=== PATIENT | female | born 1990 | race Caucasian/White ===

== ENCOUNTER 2016-03-21 15:00 | Emergency (ER) | payer OTHER ==
[~2016-03-21 15:00] MED LIST: DOCU10CA PO; MOTR200T44 PO; PERC5TAB6 PO; PRENTAB52 PO; ZOFR20TA PO
--- NOTE | 2016-03-21 17:36 | REP ---
Obstetric sonography: History: Abdominal pain vaginal spotting. 13 weeks 5 days by LMP. Findings: Transabdominal scanning demonstrates a single living intrauterine gestation. heart rate is recorded at 165 beats per minute. motion is observed. No subchorionic hemorrhage is seen. There is a posterior placenta without evidence of previa. There is a right maternal adnexal cyst, 2.2 cm in diameter consistent with corpus luteum. No gross anomaly is seen. Biometry chart: [place]-rump length 8.8 cm= 14 weeks 5 days BPD 2.8 cm = 15 weeks 0 days Head circumference 10.4 cm = 14 weeks 6 days Abdominal circumference 7.9 cm = 14 weeks 2 days Femur length 1.2 cm = 13 weeks 4 days Humeral length 1.5 cm = 14 weeks 1 day HC/AC ratio 1.32, cephalic index 0.75 estimated weight 88 grams, 0 pounds 3 ounces, 53rd percentile for 13 weeks 5 days. Impression: Viable single intrauterine gestation at 14 weeks 3 days by today's composite sonographic criteria. GUERO by today's sonography 09/16/2016. No complication is identified. Signed by Gabriele Mendoza MD 03/21/2016 05:44 P
[2016-03-21 18:02] LABS: MEAN CORPUSCULAR HEMOGLOBIN 27.7 pg (27.0-33.0); MEAN CORPUSCULAR HGB CONC 32.7 g/dl (32.0-36.5); MEAN CORPUSCULAR VOLUME 84.7 fl (80.0-96.0); RED CELL DISTRIBUTION WIDTH 14.1 % (11.5-14.5); WHITE BLOOD COUNT 15.2 K/mm3 (4.0-10.0)
--- NOTE | 2016-03-21 20:08 | EDDOCDS ---
Nurse's Notes [facility] Name: Obdulia Tam Age: 25 yrs Sex: Female : 1990 Arrival Date: 03/21/2016 Time: 15:00 Bed TR8 Private MD: KAT Lyons Diagnosis: related conditions, unspecified, first trimester;Pelvic and perineal pain;Acute vaginitis Presentation: 03/21 15:10 Presenting complaint: Patient states: "I woke up with cramping this morning and small ead amount of pink bleeding." Pt states she is 13 weeks . Risk factors: the patient reports a small or scant amount of vaginal bleeding. Adult Sepsis Screening: The patient does not have new or worsening altered mentation. Patient's respiratory rate is less than 22. Systolic blood pressure is greater than 100. Patient has a qSOFA score of 0- Negative Sepsis Screen. Suicide/Homicide risk assessment- the patient denies having any suicidal and/or homicidal ideations and does not present with any other emotional, behavioral or mental health complaints. Status: The patient is a dependent. Transition of care: patient was not received from another setting of care. 15:10 Acuity: BI Level 3 ead 15:10 Method Of Arrival: Walkin/Carried/Asstd ead Triage Assessment: 15:12 General: Appears in no apparent distress, well nourished, well groomed, Behavior is ead appropriate for age, cooperative, pleasant. Pain: Location: abdomen Pain currently is 5 out of 10 on a pain scale. HIV screening NA for this visit Offered previously. Neurological: No deficits noted. GI: Reports lower abdominal pain, Denies nausea, vomiting. GI: Reports cramping. : Reports vaginal bleeding that is spotty and pink. Derm: Skin is pink, warm & dry. 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 Vitamin Oral once daily - PMHx: Hypertension; Depression; - PSHx: ; - Social history: Smoking status: Patient states former smoker of tobacco. No barriers to communication noted, The patient speaks fluent Yemeni, Speaks appropriately for age. - Family history: Not pertinent. - : The pt / caregiver states he / she is not on anticoagulants. Home medication list is obtained from the patient. - Exposure Risk Screening:: None identified. Screenin:04 Screening information is obtained from the patient. Fall risk: No risks identified. ms18 Assistance ADL's: requires no assistance with activities of daily living. Abuse/DV Screen: The patient / caregiver reports he/she is: not in a situation that causes fear, pain or injury. Nutritional screening: No deficits noted. Advance Directives: There is no living will. home support is adequate. Assessment: 20:04 General: Appears in no apparent distress, comfortable, Behavior is appropriate for age, ms18 cooperative, pleasant. Pain: Denies pain. Neurological: Level of Consciousness is awake, alert, obeys commands, Oriented to person, place, time, Gait is steady, Speech is normal. Respiratory: No deficits noted. GI: Abdomen is non- distended Bowel sounds present X 4 quads. Abd is soft X 4 quads. Derm: Skin is pink, warm & dry. Vital Signs: 15:01 BP 146 / 81; Pulse 102; Resp 18 S; Temp 97.8(O); Pulse Ox 100% on R/A; Weight 124.74 kg gr2 (R); Height 5 ft. 7 in. (170.18 cm) (R); Pain 4/10; 17:28 BP 128 / 75; Pulse 89; Resp 18; Temp 98.5(TE); Pulse Ox 99% on R/A; Pain 4/10; ar3 20:02 BP 136 / 84; Pulse 84; Resp 18; Temp 98.2(TE); Pulse Ox 96% on R/A; Pain 4/10; ar3 15:01 Body Mass Index 43.07 (124.74 kg, 170.18 cm) gr2 Vitals: 15:01 Log In Time: March 21, 2016 at 15:01. gr2 ED Course: 15:01 Patient visited by Julianna King. gr2 15:01 Serena [facility] is Private Physician. gr2 15:01 Patient moved to Waiting gr2 15:03 Patient visited by Julianna King. gr2 15:03 Patient moved to Pre RCE gr2 15:12 Triage Initiated ead 16:28 Patient moved to Ultrasound am17 16:43 Patient moved to Pre RCE am17 17:29 Patient visited by Lisy Gao PCA. ar3 17:39 Complete Blood Count Sent. ar3 17:39 Hcg, Serum Quantitative Sent. ar3 17:39 Type & Screen Sent. ar3 17:39 Urinalysis Sent. ar3 17:39 Urine Culture Sent. ar3 18:11 US OBS GEORGE EDWARDS Returned. EDMS 18:42 Patient moved to Triage 3 bnb 18:58 Lopez Xiong PA is PHCP. mo1 18:58 Kaylyn Knight MD is Attending Physician. mo1 19:15 Patient visited by Lopez Xiong PA. mo1 19:35 Assist provider with pelvic exam:. ms18 19:40 Patient visited by Coretta Nova RN. ms18 19:40 Patient moved to TR2 ms18 19:40 Wet Prep Sent. ms18 19:40 GC & Chlamydia Amplification Sent. ms18 19:46 [facility] Payment Agreement was scanned into [employer] and attached to record. gjb 19:59 KAT Lyons is Referral Physician. mo1 19:59 Kt Da Silva MD is Referral Physician. mo1 19:59 Patient moved to PR2 / 26 ms18 20:03 Patient visited by Lisy Gao PCA. ar3 20:04 Patient moved to TR8 ms18 20:04 The patient / caregiver is instructed regarding the plan of care and ED course. Patient ms18 has correct armband on for positive identification. Property sent home with patient. :Personal belongings accompany Pt. 20:04 No IV's were initiated during this patient's visit. ms18 Order Results: Lab Order: Complete Blood Count; SPEC'M 03/21/16 17:33 Test: WHITE BLOOD COUNT; Value: 15.2; Range: 4.0-10.0; Abnormal: Above high normal; Units: K/mm3; Status: F Test: RED BLOOD COUNT; Value: 4.88; Range: 4.00-5.40; Units: M/mm3; Status: F Test: HEMOGLOBIN; Value: 13.5; Range: 12.0-16.0; Units: g/dl; Status: F Test: HEMATOCRIT; Value: 41.4; Range: 36.0-47.0; Units: %; Status: F Test: MEAN CORPUSCULAR VOLUME; Value: 84.7; Range: 80.0-96.0; Units: fl; Status: F Test: MEAN CORPUSCULAR HEMOGLOBIN; Value: 27.7; Range: 27.0-33.0; Units: pg; Status: F Test: MEAN CORPUSCULAR HGB CONC; Value: 32.7; Range: 32.0-36.5; Units: g/dl; Status: F Test: RED CELL DISTRIBUTION WIDTH; Value: 14.1; Range: 11.5-14.5; Units: %; Status: F Test: PLATELET COUNT, AUTOMATED; Value: 263; Range: 150-450; Units: k/mm3; Status: F Lab Order: Hcg, Serum Quantitative; SPEC'M 03/21/16 Test: HCG, SERUM QUANTITATIVE; Value: 61452; Units: MIU/ML; Status: F Test Note: ; GESTATIONAL AGE APPROXIMATE HCG RANGE (MIU/ML) 0.2-1 WEEK 5-50 1-2 WEEKS 50-500 2-3 WEEKS 100-5,000 3-4 WEEKS 500-10,000 4-5 WEEKS 1,000-50,000 5-6 WEEKS 10,000-100,000 6-8 WEEKS 15,000-200,000 2-3 MONTHS 10,000-100,000 NON FEMALES LESS THAN 3.0 Patient samples may contain human heterophilic antibodies that could react with immunoassays to give falsely elevated or depressed results. This assay has been designed to minimize interference from heterophilic antibodies. Elevated hCG levels have also been associated with trophoblastic disease and nontrophoblastic neoplasms. The possibility of having these diseases should be considered before a diagnosis of is made. This test is not intended for use as a surrogate marker for aiding in the diagnosis or monitoring the treatment of cancer patients. [employer] protected-[email or web address] methodology. Lab Order: Type & Screen; SPEC'03/21/16 Test: BLOOD TYPE; Value: A POS; Status: F Test: AB SCREEN (INDIRECT JYOTI)GEL; Value: NEGATIVE; Status: F Lab Order: Urinalysis; SPEC'M 03/21/16 Test: APPEARANCE, URINE; Value: HAZY; Range: CLEAR; Status: F Test: COLOR, URINE; Value: YELLOW; Range: YELLOW; Status: F Test: PH,URINE; Value: 5.0; Range: 5.0-9.0; Units: UNITS; Status: F Test: SPECIFIC GRAVITY URINE AUTO; Value: 1.027; Range: 1.002-1.035; Status: F Test: PROTEIN, URINE AUTO; Value: NEGATIVE; Range: NEGATIVE; Units: mg/dL; Status: F Test: GLUCOSE, URINE (UA) AUTO; Value: NEGATIVE; Range: NEGATIVE; Units: mg/dL; Status: F Test: KETONE, URINE AUTO; Value: 1+; Range: NEGATIVE; Abnormal: Above high normal; Units: mg/dL; Status: F Test: UROBILINOGEN, URINE AUTO; Value: 0.2; Range: 0.0-2.0; Units: mg/dL; Status: F Test: BILIRUBIN, URINE AUTO; Value: NEGATIVE; Range: NEGATIVE; Status: F Test: NITRITE, URINE AUTO; Value: NEGATIVE; Range: NEGATIVE; Status: F Test: LEUKOCYTE ESTERASE, URINE AUTO; Value: NEGATIVE; Range: NEGATIVE; Status: F Test: BLOOD, URINE BLOOD; Value: 1+; Range: NEGATIVE; Abnormal: Above high normal; Status: F Test: WBC, URINE AUTO; Value: 2; Range: 0-3; Units: /HPF; Status: F Test: RBC, URINE AUTO; Value: 4; Range: 0-3; Abnormal: Above high normal; Units: /HPF; Status: F Test: BACTERIA, URINE AUTO; Value: NEGATIVE; Range: NEGATIVE; Status: F Test: SQUAMOUS EPITHELIAL CELL UR AU; Value: 2; Range: 0-6; Units: /HPF; Status: F Test: TRANSITIONAL EPITHELIAL AUTO; Value: <1; Range: NONE; Units: /HPF; Status: F Test: MUCUS, URINE; Value: SMALL; Range: NEGATIVE; Status: F Test: HYALINE CAST, URINE AUTO; Value: 0; Range: 0-1; Units: /LPF; Status: F Lab Order: Wet Prep; SPEC'M 03/21/16 19:36 Test: WET PREP; Value: WET PREP RESULT; Status: F Test: WET PREP; Value: MANY EPITHELIAL CELLS PRESENT; Status: F Test: WET PREP; Value: MANY WBC; Status: F Test: WET PREP; Value: MANY SHORT RODS PRESENT; Status: F Test: WET PREP; Value: MODERATE LONG RODS PRESENT; Status: F Radiology Order: US OBS SINGEL GEST Test: US OBS SINGEL GEST REASON FOR EXAMINATION: Bleeding; Obstetric sonography:; ; History: Abdominal pain vaginal spotting. 13 weeks 5 days by LMP.; ; Findings: Transabdominal scanning demonstrates a single living intrauterine; gestation. heart rate is recorded at 165 beats per minute. motion; is observed. No subchorionic hemorrhage is seen. There is a posterior placenta; without evidence of previa. There is a right maternal adnexal cyst, 2.2 cm in; diameter consistent with corpus luteum. No gross anomaly is seen.; ; Biometry chart:; ; [place]-rump length 8.8 cm= 14 weeks 5 days; ; BPD 2.8 cm = 15 weeks 0 days; ; Head circumference 10.4 cm = 14 weeks 6 days; ; Abdominal circumference 7.9 cm = 14 weeks 2 days; ; Femur length 1.2 cm = 13 weeks 4 days; ; Humeral length 1.5 cm = 14 weeks 1 day; ; HC/AC ratio 1.32,; ; cephalic index 0.75; ; estimated weight 88 grams, 0 pounds 3 ounces, 53rd percentile for 13 weeks; 5 days.; ; Impression:; ; Viable single intrauterine gestation at 14 weeks 3 days by today's composite; sonographic criteria. GUERO by today's sonography 09/16/2016. No complication is; identified.; ; ; Signed by; Gabriele Mendoza MD 03/21/2016 05:44 P; Outcome: 19:59 Discharge ordered by Provider. mo1 20:04 Discharge Assessment: Patient awake, alert and oriented x 3. No cognitive and/or ms18 functional deficits noted. Patient verbalized understanding of disposition instructions. patient administered narcotics - no. The following High Risk Discharge criteria are identified: None. Discharged to home ambulatory. Condition: good Condition: stable Condition: improved. Discharge instructions given to patient, Instructed on discharge instructions, follow up and referral plans. Demonstrated understanding of instructions, medications, Pt was receptive of discharge instructions/ teaching. No special radiology studies were completed. 20:07 Patient left the ED. ms18 Signatures: Dispatcher [employer] EDMS Lisy Gao, CREDIT VERIFIER CREDIT VERIFIER ar3 Julianna King gr2 Lopez Xiong PA PA mo1 Joselyn Canchola,RN RN ead Lucrecia Fuller am17 Coretta Nova RN RN ms18 Daxa Arredondo Brittney, CREDIT VERIFIER CREDIT VERIFIER bnb MTDD
--- NOTE | 2016-03-21 20:08 | EDDOCDS ---
Physician Documentation [facility] Name: Obdulia Tam Age: 25 yrs Sex: Female : 1990 Arrival Date: 03/21/2016 Time: 15:00 Bed TR8 Private MD: KAT Lyons Disposition: 03/21/16 19:59 Discharged to Home/Self Care. Impression: related conditions, unspecified, first trimester, Pelvic and perineal pain, Acute vaginitis. - Condition is Stable. - Discharge Instructions: First Trimester of , Pelvic Pain, Female. - Medication Reconciliation, Local Pharmacy Hours form. - Follow up: KAT Lyons; When: Call to arrange an appointment; Reason: Recheck today's complaints, Continuance of care. Follow up: Kt Da Silva MD; When: Call to arrange an appointment; Reason: Recheck today's complaints, Continuance of care. - Problem is new. - Symptoms are unchanged. Historical: - Allergies: no known allergies; - Home Meds: 1. Vitamin Oral once daily - PMHx: Hypertension; Depression; - PSHx: ; - Social history: Smoking status: Patient states former smoker of tobacco. No barriers to communication noted, The patient speaks fluent Serbian, Speaks appropriately for age. - Family history: Not pertinent. - : The pt / caregiver states he / she is not on anticoagulants. Home medication list is obtained from the patient. - Exposure Risk Screening:: None identified. 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 7 in. (170.18 cm) (R); Pain 4/10; 17:28 BP 128 / 75; Pulse 89; Resp 18; Temp 98.5(TE); Pulse Ox 99% on R/A; Pain 4/10; ar3 20:02 BP 136 / 84; Pulse 84; Resp 18; Temp 98.2(TE); Pulse Ox 96% on R/A; Pain 4/10; ar3 15:01 Body Mass Index 43.07 (124.74 kg, 170.18 cm) gr2 MDM: 15:57 Undress patient appropriately for examination ordered. jc4 15:58 Complete Blood Count Ordered. EDMS 15:58 Hcg, Serum Quantitative Ordered. EDMS 15:58 Urinalysis Ordered. EDMS 15:59 Urine Culture Ordered. EDMS 16:00 Type & Screen Ordered. EDMS 16:40 US OBS SINGEL GEST Ordered. EDMS 19:15 Complete Blood Count Reviewed. mo1 19:16 Urinalysis Reviewed. mo1 19:16 Hcg, Serum Quantitative Reviewed. mo1 19:16 Type & Screen Reviewed. mo1 19:17 US OBS SINGEL GEST Reviewed. mo1 19:27 Set up pelvic ordered. mo1 19:28 GC & Chlamydia Amplification Ordered. EDMS 19:28 Wet Prep Ordered. EDMS 19:46 [facility] Payment Agreement was scanned into [employer] and attached to record. gjb 19:46 Financial registration complete. gjb 19:58 Wet Prep Reviewed. mo1 Signatures: Dispatcher [employer] Sue Soto RN RN jc4 Lopez Xiong, ELEONORA PA mo1 Joselyn CancholaRN Coretta Gupta RN RN ms18 Daxa Arredondo gjb The chart was reviewed and I authenticate all verbal orders and agree with the evaluation and treatment provided.Corrections: (The following items were deleted from the chart) 16:40 15:59 1ST TRIMESTER US+US ordered. EDMA EDMS Attachments: 19:46 [facility] Payment Agreement gjb MTDD
--- NOTE | 2016-03-23 21:07 | EDDOCDS ---
Physician Documentation [facility] [place] Name: Obdulia Tam Age: 25 yrs Sex: Female : 1990 Arrival Date: 03/21/2016 Time: 15:00 Bed TR8 Private MD: KAT Lyons Disposition: 03/21/16 19:59 Discharged to Home/Self Care. Impression: related conditions, unspecified, first trimester, Pelvic and perineal pain, Acute vaginitis. - Condition is Stable. - Discharge Instructions: First Trimester of , Pelvic Pain, Female. - Medication Reconciliation, Local Pharmacy Hours form. - Follow up: KAT Lyons; When: Call to arrange an appointment; Reason: Recheck today's complaints, Continuance of care. Follow up: Kt Da Silva MD; When: Call to arrange an appointment; Reason: Recheck today's complaints, Continuance of care. - Problem is new. - Symptoms are unchanged. Historical: - Allergies: no known allergies; - Home Meds: 1. Vitamin Oral once daily - PMHx: Hypertension; Depression; - PSHx: ; - Social history: Smoking status: Patient states former smoker of tobacco. No barriers to communication noted, The patient speaks fluent Setswana, Speaks appropriately for age. - Family history: Not pertinent. - : The pt / caregiver states he / she is not on anticoagulants. Home medication list is obtained from the patient. - Exposure Risk Screening:: None identified. 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 7 in. (170.18 cm) (R); Pain 4/10; 17:28 BP 128 / 75; Pulse 89; Resp 18; Temp 98.5(TE); Pulse Ox 99% on R/A; Pain 4/10; ar3 20:02 BP 136 / 84; Pulse 84; Resp 18; Temp 98.2(TE); Pulse Ox 96% on R/A; Pain 4/10; ar3 15:01 Body Mass Index 43.07 (124.74 kg, 170.18 cm) gr2 MDM: 15:57 Undress patient appropriately for examination ordered. jc4 15:58 Complete Blood Count Ordered. EDMS 15:58 Hcg, Serum Quantitative Ordered. EDMS 15:58 Urinalysis Ordered. EDMS 15:59 Urine Culture Ordered. EDMS 16:00 Type & Screen Ordered. EDMS 16:40 US OBS SINGEL GEST Ordered. EDMS 19:15 Complete Blood Count Reviewed. mo1 19:16 Urinalysis Reviewed. mo1 19:16 Hcg, Serum Quantitative Reviewed. mo1 19:16 Type & Screen Reviewed. mo1 19:17 US OBS SINGEL GEST Reviewed. mo1 19:27 Set up pelvic ordered. mo1 19:28 GC & Chlamydia Amplification Ordered. EDMS 19:28 Wet Prep Ordered. EDMS 19:46 [facility] Payment Agreement was scanned into [employer] and attached to record. gjb 19:46 Financial registration complete. gjb 19:58 Wet Prep Reviewed. mo1 03/22 11:02 T-Sheet-- Draft Copy was scanned into [employer] and attached to record. gb Signatures: Dispatcher [employer] EDDE Thais Mcintyre, Reg Reg gb Sue Vines, RN RN jc4 Lopez Xiong, ELEONORA PA mo1 Joselyn Canchola,RN RN Coretta Gimenez,RN RN ms18 Daxa Arredondo The chart was reviewed and I authenticate all verbal orders and agree with the evaluation and treatment provided.Corrections: (The following items were deleted from the chart) 03/21 16:40 15:59 1ST TRIMESTER US+US ordered. EDDE EDMS Attachments: 19:46 [facility] Payment Agreement gj 03/22 11:02 T-Sheet-- Draft Copy gb Chart Complete MTDD
--- NOTE | 2016-03-23 21:07 | EDDOCDS ---
Physician Documentation [facility] Name: Obdulia Tam Age: 25 yrs Sex: Female : 1990 Arrival Date: 03/21/2016 Time: 15:00 Bed TR8 Private MD: KAT Lyons Disposition: 03/21/16 19:59 Discharged to Home/Self Care. Impression: related conditions, unspecified, first trimester, Pelvic and perineal pain, Acute vaginitis. - Condition is Stable. - Discharge Instructions: First Trimester of , Pelvic Pain, Female. - Medication Reconciliation, Local Pharmacy Hours form. - Follow up: KAT Lyons; When: Call to arrange an appointment; Reason: Recheck today's complaints, Continuance of care. Follow up: Kt Da Silva MD; When: Call to arrange an appointment; Reason: Recheck today's complaints, Continuance of care. - Problem is new. - Symptoms are unchanged. Historical: - Allergies: no known allergies; - Home Meds: 1. Vitamin Oral once daily - PMHx: Hypertension; Depression; - PSHx: ; - Social history: Smoking status: Patient states former smoker of tobacco. No barriers to communication noted, The patient speaks fluent Bengali, Speaks appropriately for age. - Family history: Not pertinent. - : The pt / caregiver states he / she is not on anticoagulants. Home medication list is obtained from the patient. - Exposure Risk Screening:: None identified. 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 7 in. (170.18 cm) (R); Pain 4/10; 17:28 BP 128 / 75; Pulse 89; Resp 18; Temp 98.5(TE); Pulse Ox 99% on R/A; Pain 4/10; ar3 20:02 BP 136 / 84; Pulse 84; Resp 18; Temp 98.2(TE); Pulse Ox 96% on R/A; Pain 4/10; ar3 15:01 Body Mass Index 43.07 (124.74 kg, 170.18 cm) gr2 MDM: 15:57 Undress patient appropriately for examination ordered. jc4 15:58 Complete Blood Count Ordered. EDMS 15:58 Hcg, Serum Quantitative Ordered. EDMS 15:58 Urinalysis Ordered. EDMS 15:59 Urine Culture Ordered. EDMS 16:00 Type & Screen Ordered. EDMS 16:40 US OBS SINGEL GEST Ordered. EDMS 19:15 Complete Blood Count Reviewed. mo1 19:16 Urinalysis Reviewed. mo1 19:16 Hcg, Serum Quantitative Reviewed. mo1 19:16 Type & Screen Reviewed. mo1 19:17 US OBS SINGEL GEST Reviewed. mo1 19:27 Set up pelvic ordered. mo1 19:28 GC & Chlamydia Amplification Ordered. EDMS 19:28 Wet Prep Ordered. EDMS 19:46 [facility] [place] Payment Agreement was scanned into [employer] and attached to record. gjb 19:46 Financial registration complete. gjb 19:58 Wet Prep Reviewed. mo1 03/22 11:02 T-Sheet-- Draft Copy was scanned into [employer] and attached to record. gb Signatures: Dispatcher [employer] EDRI Thais Mcintyre, Reg Reg gb Sue Vines, RN RN jc4 Lopez Xiong, ELEONORA PA mo1 Joselyn Canchola,RN RN Coretta Gimenez,RN RN ms18 Daxa Arredondo The chart was reviewed and I authenticate all verbal orders and agree with the evaluation and treatment provided.Corrections: (The following items were deleted from the chart) 03/21 16:40 15:59 1ST TRIMESTER US+US ordered. EDRI EDMS Attachments: 19:46 [facility] Payment Agreement gj 03/22 11:02 T-Sheet-- Draft Copy gb Chart Complete MTDD
--- NOTE | 2016-03-23 21:07 | EDDOCDS ---
Nurse's Notes [facility] Name: Obdulia Tam Age: 25 yrs Sex: Female : 1990 Arrival Date: 03/21/2016 Time: 15:00 Bed TR8 Private MD: KAT Lyons Diagnosis: related conditions, unspecified, first trimester;Pelvic and perineal pain;Acute vaginitis Presentation: 03/21 15:10 Presenting complaint: Patient states: "I woke up with cramping this morning and small ead amount of pink bleeding." Pt states she is 13 weeks . Risk factors: the patient reports a small or scant amount of vaginal bleeding. Adult Sepsis Screening: The patient does not have new or worsening altered mentation. Patient's respiratory rate is less than 22. Systolic blood pressure is greater than 100. Patient has a qSOFA score of 0- Negative Sepsis Screen. Suicide/Homicide risk assessment- the patient denies having any suicidal and/or homicidal ideations and does not present with any other emotional, behavioral or mental health complaints. Status: The patient is a dependent. Transition of care: patient was not received from another setting of care. 15:10 Acuity: BI Level 3 ead 15:10 Method Of Arrival: Walkin/Carried/Asstd ead Triage Assessment: 15:12 General: Appears in no apparent distress, well nourished, well groomed, Behavior is ead appropriate for age, cooperative, pleasant. Pain: Location: abdomen Pain currently is 5 out of 10 on a pain scale. HIV screening NA for this visit Offered previously. Neurological: No deficits noted. GI: Reports lower abdominal pain, Denies nausea, vomiting. GI: Reports cramping. : Reports vaginal bleeding that is spotty and pink. Derm: Skin is pink, warm & dry. 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 Vitamin Oral once daily - PMHx: Hypertension; Depression; - PSHx: ; - Social history: Smoking status: Patient states former smoker of tobacco. No barriers to communication noted, The patient speaks fluent Welsh, Speaks appropriately for age. - Family history: Not pertinent. - : The pt / caregiver states he / she is not on anticoagulants. Home medication list is obtained from the patient. - Exposure Risk Screening:: None identified. Screenin:04 Screening information is obtained from the patient. Fall risk: No risks identified. ms18 Assistance ADL's: requires no assistance with activities of daily living. Abuse/DV Screen: The patient / caregiver reports he/she is: not in a situation that causes fear, pain or injury. Nutritional screening: No deficits noted. Advance Directives: There is no living will. home support is adequate. Assessment: 20:04 General: Appears in no apparent distress, comfortable, Behavior is appropriate for age, ms18 cooperative, pleasant. Pain: Denies pain. Neurological: Level of Consciousness is awake, alert, obeys commands, Oriented to person, place, time, Gait is steady, Speech is normal. Respiratory: No deficits noted. GI: Abdomen is non- distended Bowel sounds present X 4 quads. Abd is soft X 4 quads. Derm: Skin is pink, warm & dry. Vital Signs: 15:01 BP 146 / 81; Pulse 102; Resp 18 S; Temp 97.8(O); Pulse Ox 100% on R/A; Weight 124.74 kg gr2 (R); Height 5 ft. 7 in. (170.18 cm) (R); Pain 4/10; 17:28 BP 128 / 75; Pulse 89; Resp 18; Temp 98.5(TE); Pulse Ox 99% on R/A; Pain 4/10; ar3 20:02 BP 136 / 84; Pulse 84; Resp 18; Temp 98.2(TE); Pulse Ox 96% on R/A; Pain 4/10; ar3 15:01 Body Mass Index 43.07 (124.74 kg, 170.18 cm) gr2 Vitals: 15:01 Log In Time: March 21, 2016 at 15:01. gr2 ED Course: 15:01 Patient visited by Julianna King. gr2 15:01 Se[facility] is Private Physician. gr2 15:01 Patient moved to Waiting gr2 15:03 Patient visited by Julianna King. gr2 15:03 Patient moved to Pre RCE gr2 15:12 Triage Initiated ead 16:28 Patient moved to Ultrasound am17 16:43 Patient moved to Pre RCE am17 17:29 Patient visited by Lisy Gao PCA. ar3 17:39 Complete Blood Count Sent. ar3 17:39 Hcg, Serum Quantitative Sent. ar3 17:39 Type & Screen Sent. ar3 17:39 Urinalysis Sent. ar3 17:39 Urine Culture Sent. ar3 18:11 US OBS GEORGE EDWARDS Returned. EDMS 18:42 Patient moved to Triage 3 bnb 18:58 Lopez Xiong PA is PHCP. mo1 18:58 Kaylyn Knight MD is Attending Physician. mo1 19:15 Patient visited by Lopez Xiong PA. mo1 19:35 Assist provider with pelvic exam:. ms18 19:40 Patient visited by Coretta Nova RN. ms18 19:40 Patient moved to TR2 ms18 19:40 Wet Prep Sent. ms18 19:40 GC & Chlamydia Amplification Sent. ms18 19:46 [facility] Payment Agreement was scanned into [employer] and attached to record. gjb 19:59 KAT Lyons is Referral Physician. mo1 19:59 Kt Da Silva MD is Referral Physician. mo1 19:59 Patient moved to PR2 / 26 ms18 20:03 Patient visited by Lisy Gao PCA. ar3 20:04 Patient moved to TR8 ms18 20:04 The patient / caregiver is instructed regarding the plan of care and ED course. Patient ms18 has correct armband on for positive identification. Property sent home with patient. :Personal belongings accompany Pt. 20:04 No IV's were initiated during this patient's visit. ms18 03/22 11:02 T-Sheet-- Draft Copy was scanned into [employer] and attached to record. gb Order Results: Lab Order: Complete Blood Count; SPEC'M 03/21/16 17:33 Test: WHITE BLOOD COUNT; Value: 15.2; Range: 4.0-10.0; Abnormal: Above high normal; Units: K/mm3; Status: F Test: RED BLOOD COUNT; Value: 4.88; Range: 4.00-5.40; Units: M/mm3; Status: F Test: HEMOGLOBIN; Value: 13.5; Range: 12.0-16.0; Units: g/dl; Status: F Test: HEMATOCRIT; Value: 41.4; Range: 36.0-47.0; Units: %; Status: F Test: MEAN CORPUSCULAR VOLUME; Value: 84.7; Range: 80.0-96.0; Units: fl; Status: F Test: MEAN CORPUSCULAR HEMOGLOBIN; Value: 27.7; Range: 27.0-33.0; Units: pg; Status: F Test: MEAN CORPUSCULAR HGB CONC; Value: 32.7; Range: 32.0-36.5; Units: g/dl; Status: F Test: RED CELL DISTRIBUTION WIDTH; Value: 14.1; Range: 11.5-14.5; Units: %; Status: F Test: PLATELET COUNT, AUTOMATED; Value: 263; Range: 150-450; Units: k/mm3; Status: F Lab Order: Hcg, Serum Quantitative; SPEC' 03/21/16: Test: HCG, SERUM QUANTITATIVE; Value: 60088; Units: MIU/ML; Status: F Test Note: ; GESTATIONAL AGE APPROXIMATE HCG RANGE (MIU/ML) 0.2-1 WEEK 5-50 1-2 WEEKS 50-500 2-3 WEEKS 100-5,000 3-4 WEEKS 500-10,000 4-5 WEEKS 1,000-50,000 5-6 WEEKS 10,000-100,000 6-8 WEEKS 15,000-200,000 2-3 MONTHS 10,000-100,000 NON FEMALES LESS THAN 3.0 Patient samples may contain human heterophilic antibodies that could react with immunoassays to give falsely elevated or depressed results. This assay has been designed to minimize interference from heterophilic antibodies. Elevated hCG levels have also been associated with trophoblastic disease and nontrophoblastic neoplasms. The possibility of having these diseases should be considered before a diagnosis of is made. This test is not intended for use as a surrogate marker for aiding in the diagnosis or monitoring the treatment of cancer patients. [email or web address] methodology. Lab Order: Type & Screen; SPEC'M 03/21/16 17:33 Test: BLOOD TYPE; Value: A POS; Status: F Test: AB SCREEN (INDIRECT JYOTI)GEL; Value: NEGATIVE; Status: F Lab Order: Urinalysis; SPEC'M 03/21/16 17:33 Test: APPEARANCE, URINE; Value: HAZY; Range: CLEAR; Status: F Test: COLOR, URINE; Value: YELLOW; Range: YELLOW; Status: F Test: PH,URINE; Value: 5.0; Range: 5.0-9.0; Units: UNITS; Status: F Test: SPECIFIC GRAVITY URINE AUTO; Value: 1.027; Range: 1.002-1.035; Status: F Test: PROTEIN, URINE AUTO; Value: NEGATIVE; Range: NEGATIVE; Units: mg/dL; Status: F Test: GLUCOSE, URINE (UA) AUTO; Value: NEGATIVE; Range: NEGATIVE; Units: mg/dL; Status: F Test: KETONE, URINE AUTO; Value: 1+; Range: NEGATIVE; Abnormal: Above high normal; Units: mg/dL; Status: F Test: UROBILINOGEN, URINE AUTO; Value: 0.2; Range: 0.0-2.0; Units: mg/dL; Status: F Test: BILIRUBIN, URINE AUTO; Value: NEGATIVE; Range: NEGATIVE; Status: F Test: NITRITE, URINE AUTO; Value: NEGATIVE; Range: NEGATIVE; Status: F Test: LEUKOCYTE ESTERASE, URINE AUTO; Value: NEGATIVE; Range: NEGATIVE; Status: F Test: BLOOD, URINE BLOOD; Value: 1+; Range: NEGATIVE; Abnormal: Above high normal; Status: F Test: WBC, URINE AUTO; Value: 2; Range: 0-3; Units: /HPF; Status: F Test: RBC, URINE AUTO; Value: 4; Range: 0-3; Abnormal: Above high normal; Units: /HPF; Status: F Test: BACTERIA, URINE AUTO; Value: NEGATIVE; Range: NEGATIVE; Status: F Test: SQUAMOUS EPITHELIAL CELL UR AU; Value: 2; Range: 0-6; Units: /HPF; Status: F Test: TRANSITIONAL EPITHELIAL AUTO; Value: <1; Range: NONE; Units: /HPF; Status: F Test: MUCUS, URINE; Value: SMALL; Range: NEGATIVE; Status: F Test: HYALINE CAST, URINE AUTO; Value: 0; Range: 0-1; Units: /LPF; Status: F Lab Order: Urine Culture; SPEC'M 03/21/16 17:33 Test: URINE CULTURE; Value: URINE CULTURE RESULT SPECIMEN APPEARS CONTAMINATED; Status: F Lab Order: GC & Chlamydia Amplification; SPEC'M 03/21/16 19:36 Test: CHLAMYDIA DNA AMPLIFICATION; Value: NEGATIVE; Range: NEGATIVE; Status: F Test: GC DNA AMPLIFICATION; Value: NEGATIVE; Range: NEGATIVE; Status: F Lab Order: Wet Prep; SPEC'M 03/21/16 19:36 Test: WET PREP; Value: WET PREP RESULT; Status: F Test: WET PREP; Value: MANY EPITHELIAL CELLS PRESENT; Status: F Test: WET PREP; Value: MANY WBC; Status: F Test: WET PREP; Value: MANY SHORT RODS PRESENT; Status: F Test: WET PREP; Value: MODERATE LONG RODS PRESENT; Status: F Radiology Order: US OBS SINGEL GEST Test: US OBS SINGEL GEST REASON FOR EXAMINATION: Bleeding; Obstetric sonography:; ; History: Abdominal pain vaginal spotting. 13 weeks 5 days by LMP.; ; Findings: Transabdominal scanning demonstrates a single living intrauterine; gestation. heart rate is recorded at 165 beats per minute. motion; is observed. No subchorionic hemorrhage is seen. There is a posterior placenta; without evidence of previa. There is a right maternal adnexal cyst, 2.2 cm in; diameter consistent with corpus luteum. No gross anomaly is seen.; ; Biometry chart:; ; Hector-rump length 8.8 cm= 14 weeks 5 days; ; BPD 2.8 cm = 15 weeks 0 days; ; Head circumference 10.4 cm = 14 weeks 6 days; ; Abdominal circumference 7.9 cm = 14 weeks 2 days; ; Femur length 1.2 cm = 13 weeks 4 days; ; Humeral length 1.5 cm = 14 weeks 1 day; ; HC/AC ratio 1.32,; ; cephalic index 0.75; ; estimated weight 88 grams, 0 pounds 3 ounces, 53rd percentile for 13 weeks; 5 days.; ; Impression:; ; Viable single intrauterine gestation at 14 weeks 3 days by today's composite; sonographic criteria. GUERO by today's sonography 09/16/2016. No complication is; identified.; ; ; Signed by; Gabriele Mendoza MD 03/21/2016 05:44 P; Outcome: 03/21 19:59 Discharge ordered by Provider. mo1 20:04 Discharge Assessment: Patient awake, alert and oriented x 3. No cognitive and/or ms18 functional deficits noted. Patient verbalized understanding of disposition instructions. patient administered narcotics - no. The following High Risk Discharge criteria are identified: None. Discharged to home ambulatory. Condition: good Condition: stable Condition: improved. Discharge instructions given to patient, Instructed on discharge instructions, follow up and referral plans. Demonstrated understanding of instructions, medications, Pt was receptive of discharge instructions/ teaching. No special radiology studies were completed. 20:07 Patient left the ED. ms18 Signatures: Dispatcher [employer] EDMS Thais Mcintyre, Reg Reg gb Lisy Gao, BENEFITS DIRECTOR BENEFITS DIRECTOR ar3 Julianna King gr2 Lopez Xiong PA PA mo1 Joselyn Canchola,RN RN Lucrecia Noel Mallory, RN RN ms18 Daxa Arredondo Brittney, BENEFITS DIRECTOR BENEFITS DIRECTOR bnb Chart Complete FIDE
== END 2016-03-21 20:07 | disposition home or self-care (01) ==
LOC: M ED 15:00
DX: O23.591 Infection of other part of genital tract in pregnancy, first trimester (principal); R11.0 Nausea; R10.9 Unspecified abdominal pain; O10.911 Unspecified pre-existing hypertension complicating pregnancy, first trimester; O99.341 Other mental disorders complicating pregnancy, first trimester; F32.9 Major depressive disorder, single episode, unspecified; Z87.891 Personal history of nicotine dependence; Z79.899 Other long term (current) drug therapy; Z3A.13 13 weeks gestation of pregnancy

== ENCOUNTER → 2016-04-28 | Outpatient (CLI) | payer OTHER ==
--- NOTE | 2016-04-28 14:43 | ECGEPIP ---
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 No prior ECG available for comparison at the time of interpretation. Electronically Signed On 04-28-2016 14:43:01 EST by Stone Hall
== END ==
LOC: M EKG 09:56
PROVIDERS: ATTEND Obstetrics & Gynecology
DX: O24.419 Gestational diabetes mellitus in pregnancy, unspecified control (principal); Z3A.18 18 weeks gestation of pregnancy